=== PATIENT | male | born 1960 | race Caucasian/White ===

== ENCOUNTER 2018-03-12 21:29 | Emergency (ER) | payer MEDICAID, OTHER ==
[2018-03-12 21:45] VITALS: BMI 20.7
[2018-03-12 21:48] VITALS: O2SAT 98
[2018-03-12] MEDS ORDERED: Mineral Oil/White Petrolatum Ophth Oint OS STA (22:18)
--- NOTE | 2018-03-12 22:47 | ED PDOC ---
HPI: Headache Time Seen by Provider: 03/12/18 21:53 Chief Complaint (Nursing): Trauma Chief Complaint (Provider): irritation to left eye History Per: Patient History/Exam Limitations: other (patient is a poor historian, states that he has poor memory, when asked why he states it is from a prior condition) Onset/Duration Of Symptoms: Days (2x) Current Symptoms Are (Timing): Still Present Quality: "Pain" Associated Symptoms: denies: Blurred Vision, Extremity Weakness Additional Complaint(s): 58 year old male presents to the ED complaining of irritation on the left eye. Patient was diagnosed with Weiner's Palsy two wks ago. Patient states that he was seen and evaluated at [facility], had a normal CT of his head. States that he was Rx steroids, which he took and completed. He was advised to follow up, however did not follow-up with any doctor due to lack of insurance. 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 Denies decreased vision, headache, dizziness, weakness , or numbness. Has no other complaints. PMD: Vidal Austin Past Medical History Reviewed: Historical Data, Nursing Documentation, Vital Signs Vital Signs: Last Vital Signs Temp 98.0 F 03/12/18 21:45 Pulse 98 H 03/12/18 21:45 Resp 19 03/12/18 21:45 BP 147/61 03/12/18 21:45 Pulse Ox 98 03/12/18 21:45 - Family History Family History: States: Unknown Family Hx - Home Medications Home Medications: Ambulatory Orders Medication Instructions Recorded Mineral Oil/White Petrolatum 1 applic OS BID #1 tube 03/12/18 [Lacri-Lube] - Allergies Allergies/Adverse Reactions: Allergies Allergy/AdvReac Type Severity Reaction Status Date / Time No Known Allergies Allergy Verified 03/12/18 21:45 Review of Systems ROS Statement: Except As Marked, All Systems Reviewed And Found Negative Eyes: Positive for: Pain. Negative for: Vision Change Neurological: Negative for: Weakness, Numbness Physical Exam - Physical Exam Comments: GENERAL APPEARANCE: Patient is awake, alert, oriented to self and time, in no acute distress. SKIN: Warm, dry; (-) cyanosis; (-) rash. HEAD: (-) scalp swelling or tenderness, (-) temporal artery tenderness. EYES: (-) conjunctival pallor, (-) scleral icterus. ENMT: (-) sinus tenderness; mucous membranes are moist. NECK: (-) tenderness, (-) stiffness, (-) meningismus, (-) lymphadenopathy. CHEST AND RESPIRATORY: (-) rales, (-) rhonchi, (-) wheezes; breath sounds equal bilaterally. HEART AND CARDIOVASCULAR: (-) irregularity; (-) murmur, (-) gallop. ABDOMEN AND GI: Soft; (-) tenderness. EXTREMITIES: (-) deformity. NEURO AND PSYCH: Mental status as above. 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 Strength symmetric. Gait is unsteady. - Laboratory Results Result Diagrams: 03/12/18 23:08 03/12/18 23:08 - ECG O2 Sat by Pulse Oximetry: 98 (RA) Pulse Ox Interpretation: Normal Medical Decision Making Medical Decision Making: Time: 2217 Initial Plan: --Head w/o Contrast --Alcohol serum --CMP --Drug screen --CBC w/ Differential --Lacri-Lube --IV Insertion --Reevaluation Patient observed to be ambulating in an unsteady gait. Patient states that he normally ambulates this way due to a prior hip condition and that this is not new for him. He does not appear to be acutely intoxicated, he is speaking in full sentences, no slurred speech, no tremors, no smell of alcohol. However considering the patient's symptoms, physical exam, labs, CT head ordered. Patient is now refusing for CT head and for lab results. States that he can not stay in the ER for too long as he has children, a and a job he needs to go to. Explanation of why diagnostic tests are being offered. However the patient continues to refuse. He states that he does not want to lose his job, he needs to go home. Patient refuses further care, evaluation or treatment in the ER. Patient informed of the reasons for the following and planned treatment, which patient understands, however still refuses. Patient informed of the risk and benefits of treatment. Informed that the risk could include worsening of current conditions, undiagnosed conditions, disability or even . Patient understands the following risk and the benefits of treatment. Patient has the capacity to make decisions and still refuses treatment by RN, PA and ER MD. Patient encouraged to return to the ER at any time and to follow up with pmd. Prior to d/c, patient states that he is missing his money, security called to patient's bedside. Scribe Attestation: Documented by Enriqueta Beltran, acting as a scribe for Linn Aldana PA-C Provider Scribe Attestation: All medical record entries made by the Scribe were at my direction and personally dictated by me. I have reviewed the chart and agree that the record accurately reflects my personal performance of the history, physical exam, medical decision making, and the department course for this patient. I have also personally directed, reviewed, and agree with the discharge instructions and disposition. Disposition - Clinical Impression Clinical Impression: Weiner's palsy, Dry eye of left side - Patient ED Disposition Is Patient to be Admitted: No - Disposition Referrals: [facility] [Outside] Vidal Austin MD [Medical Doctor] - Disposition: Against Medical Advice Disposition Time: 22:40 Condition: UNKNOWN Additional Instructions: Thank you for letting us take care of you today. You are choosing to leave against medical advice. You were evaluated for Weiner's palsy, dry left eye. The emergency medical care you received today was directed at your acute symptoms. If you were prescribed any medication, please fill it and take as directed. Return to the Emergency Department if your symptoms worsen, do not improve, or if you have any other problems. Please call one of the physicians/clinics you have been referred to that are listed on the Patient Visit Information form that is included in your discharge packet. Bring any paperwork you were given at discharge with you along with any medications you are taking to your follow up visit. Our treatment cannot replace ongoing medical care by a primary care provider (PCP) outside of the emergency department. Thank you for allowing the [facility] team to be part of your care today. 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
[2018-03-12 23:16] LABS: BASO # 0.1 K/uL (0.0-0.2); EOS # 0.2 K/uL (0.0-0.7); EOS % 2.9 % (0.0-4.0); HEMOGLOBIN 12.9 g/dL (12.0-18.0); LYMPH # 2.1 K/uL (1.0-4.3); LYMPH % 31.1 % (20.0-40.0); MEAN CELL VOLUME 82.6 fl (80.0-94.0); MEAN CORPUSCULAR HEMOGLOBIN 26.6 pg (27.0-31.0); MEAN CORPUSCULAR HGB CONC 32.2 g/dL (33.0-37.0); MEAN PLATELET VOLUME 9.3 fl (7.2-11.7); MONO # 0.6 K/uL (0.0-0.8); MONO % 8.4 % (0.0-10.0); NEUT # 3.8 K/uL (1.8-7.0); NEUT % 56.6 % (50.0-75.0); NRBC % 0.1 % (0.0-0.0); RBC 4.85 Mil/uL (4.40-5.90); RED CELL DISTRIBUTION WIDTH 16.3 % (11.5-14.5); WHITE BLOOD COUNT 6.7 K/uL (4.8-10.8)
[2018-03-12 23:29] LABS: ALB/GLOB RATIO 1.1 (1.0-2.1); ALBUMIN 3.6 g/dL (3.5-5.0); ALT/SGPT 27 U/L (21-72); AST/SGOT 29 U/L (17-59); BLOOD UREA NITROGEN 26 mg/dl (9-20); CALCIUM 9.1 mg/dL (8.4-10.2); GFR AFRICAN-AMERICAN > 60; GFR NON-AFRICAN AMERICAN > 60
[2018-03-12 23:39] LABS: BARBITURATES, UR NEGATIVE (NEGATIVE); BENZODIAZEPINES, UR POSITIVE (NEGATIVE); OPIATES, UR NEGATIVE (NEGATIVE); PHENCYCLIDINE, UR NEGATIVE (NEGATIVE)
[2018-03-13 02:49] VITALS: BP 142/83; PULSE 93; RESP 15; TEMP 98.1
== END 2018-03-12 23:10 | disposition left against medical advice (07) ==
LOC: H.ER 21:29
DX: G51.0 Bell's palsy (principal); H04.122 Dry eye syndrome of left lacrimal gland
CPT/HCPCS: 80053; 85025; 99285; G0480

== ENCOUNTER 2018-03-12 23:52 | Observation (INO) | payer MEDICAID, OTHER ==
[2018-03-12 23:52] VITALS: BMI 20.7
--- NOTE | 2018-03-13 00:33 | ED PDOC ---
HPI: Altered Mental Status Time Seen by Provider: 03/12/18 23:59 Chief Complaint (Nursing): Altered Mental Status History Per: Patient History/Exam Limitations: Clinical Condition Onset/Duration Of Symptoms: Mins Onset Of Symptoms: Cannot Confirm Onset Additional Complaint(s): Hx of bipolar disorder, emphysema, CVA, Weiner's Palsy affecting L side of face x 2 weeks presenting with AMS, per police patient was found in the middle of the straight on the ground, patient denies this. States he is here to have his L eye checked because he has been unable to fully close it for the past 2 weeks and it is becoming dry. Patient denies alcohol or drug abuse. Of note, patient was in ER earlier and left AMA. Currently patient is A&O x 1 (knows name, thinks year is 1917, month is February, thinks he's at [facility] and when asked what city he's in he states [place]"). Patient denies trauma. NIHSS Stroke Scale - Date/Time Evaluation Performed Date Performed: 03/12/18 Time Performed: 23:55 - How Severe is the Stroke Level of Consciousness: 0=Alert LOC to Questions: 1=One correct LOC to commands: 0=Obeys both correctly Best Gaze: 0=Normal Visual: 0=No visual loss Facial: 3=Complete unilateral paralysis (from Weiner's) Motor Arm - Left: 1=Drift noted before 10 sec Motor Arm - Right: 0=No drift Motor Leg - Left: 0=No drift Motor Leg - Right: 0=No drift Limb Ataxia: 0=Absent Sensory: 0=Normal Best Language: 0=No aphasia Dysarthia: 1=Mild to moderate slurring Extinction & Inattention (Neglect): 0=Normal, no object Score: 6 Past Medical History Reviewed: Historical Data, Nursing Documentation, Vital Signs Vital Signs: Last Vital Signs Temp 97.3 F L 03/12/18 23:55 Pulse 84 03/12/18 23:55 Resp 18 03/12/18 23:55 BP 125/76 03/12/18 23:55 Pulse Ox 96 03/12/18 23:55 - Medical History PMH: Bipolar Disorder, Emphysema - Family History Family History: States: Unknown Family Hx - Home Medications Home Medications: Ambulatory Orders Medication Instructions Recorded Mineral Oil/White Petrolatum 1 applic OS BID #1 tube 03/12/18 [Lacri-Lube] - Allergies Allergies/Adverse Reactions: Allergies Allergy/AdvReac Type Severity Reaction Status Date / Time No Known Allergies Allergy Verified 03/12/18 21:45 Review of Systems Review Of Systems: ROS cannot be obtained secondary to pt's inabilty to answer questions. Physical Exam - Reviewed Nursing Documentation Reviewed: Yes Vital Signs Reviewed: Yes - Physical Exam Appears: Positive for: Well, Non-toxic, No Acute Distress Head Exam: Positive for: NORMOCEPHALIC. Negative for: NORMAL INSPECTION ( abrasion to R frontal scalp) Skin: Positive for: Normal Color, Warm, DRY Eye Exam: Positive for: EOMI, PERRL, Other (L sided Weiner's precludes from closing eye, dryness) ENT: Positive for: Normal ENT Inspection Neck: Positive for: Normal, Painless ROM Cardiovascular/Chest: Positive for: Regular Rate, Rhythm Respiratory: Positive for: Rhonchi Gastrointestinal/Abdominal: Positive for: Normal Exam, Bowel Sounds, Soft. Negative for: Tenderness Back: Positive for: Normal Inspection Extremity: Positive for: Normal ROM, Other (Abrasion to bilateral shoulders, abrasion to R elbow) Neurologic/Psych: Positive for: Alert, Oriented, Cerebellar Tests (difficulty with testing, slow, but completes tasks), Facial Droop (L sided). 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 II-XII (Weiner's Palsy of L side of face involving forehead on L and L eye, L facial droop), Motor/Sensory Deficits - Laboratory Results Result Diagrams: 03/13/18 01:49 - ECG O2 Sat by Pulse Oximetry: 96 Pulse Ox Interpretation: Normal Medical Decision Making Medical Decision Makin A/P: Hx of CVA, bipolar disorder, Weiner's, emphysema presenting with AMS -unclear what patient's baseline is -possibly drug or alcohol related although patient denies; patient denies taking any medications -will do AMS workup and re-eval -NIH is 6 but onset is not known, most of findings are probably from Weiner's and possible benzo usage 6AM Patient was cleared by psych but patient still a danger to himself, getting out of bed and falling Ct negative Case discussed with Dr. Ryan, will admit for AMS, MRI in AM Disposition - Clinical Impression Clinical Impression: Altered mental status - Disposition Disposition Time: 06:47 Condition: FAIR
--- NOTE | 2018-03-13 01:03 | CT ---
EXAM: CT Head Without Intravenous Contrast CLINICAL HISTORY: 58 years old, male; Signs and symptoms; Altered mental status/memory loss; Additional info: AMS, bells palsy on l TECHNIQUE: Axial computed tomography images of the head/brain without intravenous contrast. All CT scans at this facility use one or more dose reduction techniques, viz.: automated exposure control; ma/kV adjustment per patient size (including targeted exams where dose is matched to indication; i.e. head); or iterative reconstruction technique. Sagittal reformatted images were created and reviewed. COMPARISON: No relevant prior studies available. FINDINGS: Brain: Motion artifacts significantly limits evaluation, can not exclude extra-axial hemorrhage as visualized. Repeat imaging recommended. No significant white matter disease. No edema. Ventricles: No hydrocephalus. Bones: Skull is intact. Sinuses: No acute sinusitis. Mastoid air cells: No mastoid effusion. IMPRESSION: Motion artifacts significantly limits evaluation, can not exclude extra-axial hemorrhage as visualized. Repeat imaging recommended.
[2018-03-13 02:05] LABS: ALB/GLOB RATIO 1.1 (1.0-2.1); ALBUMIN 4.1 g/dL (3.5-5.0); ALT/SGPT 27 U/L (21-72); AST/SGOT 31 U/L (17-59); BLOOD UREA NITROGEN 28 mg/dl (9-20); CALCIUM 9.5 mg/dL (8.4-10.2); GFR AFRICAN-AMERICAN > 60; GFR NON-AFRICAN AMERICAN > 60
[2018-03-13 02:09] LABS: INR 0.9 (0.9-1.2); PARTIAL THROMBOPLASTIN TIME 37.1 Seconds (25.6-37.1); PROTHROMBIN TIME 10.4 Seconds (9.8-13.1)
--- NOTE | 2018-03-13 04:39 | CT ---
EXAM: CT Head Without Intravenous Contrast EXAM DATE/TIME: 03/13/2018 2:14 AM CLINICAL HISTORY: 58 years old, male; Signs and symptoms; Altered mental status/memory loss; Additional info: Repeat head CT, trauma TECHNIQUE: Axial computed tomography images of the head/brain without intravenous contrast. All CT scans at this facility use one or more dose reduction techniques, viz.: automated exposure control; ma/kV adjustment per patient size (including targeted exams where dose is matched to indication; i.e. head); or iterative reconstruction technique. Coronal and sagittal reformatted images were created and reviewed. COMPARISON: CT - HEAD W/O CONTRAST 2018-03-13 00:29 FINDINGS: Patient motion is present slightly limiting exam. Mild atrophy. No intracranial hemorrhage. No extra axial collections. No intracranial edema. Trace mucosal thickening in the ethmoid sinuses. No depressed fractures. IMPRESSION: No acute intracranial injury.
--- NOTE | 2018-03-13 06:34 | CP.PCM.HP ---
History of Present Illness - History of Present Illness History of Present Illness: CC: altered mental status HPI: This is a 58 y/o male with MHx significant for COPD, 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 He was found by police on the ground in the middle of the street. Patient was here earlier to have his L eye checked, but had left AMA. Patient is A/Ox1, and is otherwise a poor historian. Believes it is 1916 and states his only problem is his L eye. ROS: patient with AMS, unable to provide MHx: COPD, CVA in past, Weiner's palsy affecting L side of face (x2 weeks), and bipolar disorder SHx: None Allergies: NKDA Medications: Per med rec Family Hx: unable to provide Social Hx: States lives with family; unclear about whether he uses EtOH or tobacco Present on Admission - Present on Admission Any Indicators Present on Admission: No Past Patient History - Past Social History Smoking Status: Unknown If Ever Smoked - PULMONARY Hx Emphysema: Yes - NEUROLOGICAL Hx Neurological Disorder: Yes (weiner's palsy) - PSYCHIATRIC Hx Bipolar Disorder: Yes - ANESTHESIA Hx Anesthesia: No Meds Allergies/Adverse Reactions: Allergies Allergy/AdvReac Type Severity Reaction Status Date / Time No Known Allergies Allergy Verified 03/12/18 21:45 Physical Exam - Constitutional Appears: No Acute Distress - Head Exam Head Exam: ATRAUMATIC, NORMOCEPHALIC - Eye Exam Additional comments: L eye with swelling, ? drainage - ENT Exam ENT Exam: Mucous Membranes Moist - Neck Exam Neck exam: Positive for: Full Rom - Respiratory Exam Respiratory Exam: Clear to Auscultation Bilateral, NORMAL BREATHING PATTERN - Cardiovascular Exam Cardiovascular Exam: REGULAR RHYTHM, +S1, +S2 - GI/Abdominal Exam GI & Abdominal Exam: Normal Bowel Sounds, Soft - Extremities Exam Extremities exam: Positive for: full ROM, normal inspection - Neurological Exam Neurological exam: Alert Additional comments: A/O x 1; does not comply fully with rest of neuro exam at this time - Psychiatric Exam Additional comments: difficult to assess; constricted affect - Skin Skin Exam: Dry, Warm Results - Vital Signs Recent Vital Signs: Last Vital Signs Temp 97.3 F L 03/12/18 23:55 Pulse 84 03/12/18 23:55 Resp 18 03/12/18 23:55 BP 125/76 03/12/18 23:55 Pulse Ox 96 03/13/18 00:37 - Labs Result Diagrams: 03/13/18 01:49 Labs: Laboratory Results - last 24 hr 03/13/18 03/13/18 03/13/18 00:09 01:49 01:49 PT 10.4 INR 0.9 APTT 37.1 Sodium 147 Potassium 4.1 Chloride 106 Carbon Dioxide 28 Anion Gap 17 BUN 28 H Creatinine 0.8 Est GFR ( Amer) > 60 Est GFR (Non-Af Amer) > 60 POC Glucose (mg/dL) 104 Random Glucose 103 Calcium 9.5 Total Bilirubin 0.4 AST 31 ALT 27 Alkaline Phosphatase 85 Total Protein 7.8 Albumin 4.1 Globulin 3.7 Albumin/Globulin Ratio 1.1 Alcohol, Quantitative < 10 - EKG Data EKG Interpreted by: Myself EKG shows normal: Sinus rhythm Rate: Normal - EKG Data EKG comments: unremarkable - Imaging and Cardiology CT scan - head Status: Image reviewed by me, Report reviewed by me (WNL, no acute findigns) Chest x-ray Status: Image reviewed by me (no acute findings) Assessment & Plan (1) Altered mental status Assessment and Plan: 58 y/o male with Weiner's palsy, COPD, prior CVA, and Bipolar disorder who comes in with falls and AMS; also with eye infection -Admit to Tele -Serial trops -Neuro consult, possible MRI -Neuro checks -ASA 81 -SQ Lovenox Status: Acute (2) Weiner's palsy Status: Acute (3) DVT prophylaxis Status: Acute
[2018-03-13] MEDS ORDERED: Enoxaparin 40 mg Syringe SC SCH (09:00)
--- NOTE | 2018-03-13 09:12 | RAD ---
PROCEDURE: CHEST RADIOGRAPH, 1 VIEW HISTORY: ams COMPARISON: None available. FINDINGS: LUNGS: [id number] pulmonary vascular congestion is noted. PLEURA: No pneumothorax or pleural fluid seen. CARDIOVASCULAR: Normal. OSSEOUS STRUCTURES: No significant abnormalities. VISUALIZED UPPER ABDOMEN: Normal. OTHER FINDINGS: None. IMPRESSION: [id number] pulmonary vascular congestion.
[2018-03-13] MEDS: Sodium Chloride 0.9% 1,000 ML IV SCH ×2 (09:15→17:12)
[2018-03-13 09:23] LABS: BASO # 0.1 K/uL (0.0-0.2); BASO % 0.6 % (0.0-2.0); EOS # 0.1 K/uL (0.0-0.7); EOS % 1.1 % (0.0-4.0); HEMOGLOBIN 13.4 g/dL (12.0-18.0); LYMPH # 1.5 K/uL (1.0-4.3); LYMPH % 14.8 % (20.0-40.0); MEAN CELL VOLUME 83.7 fl (80.0-94.0); MEAN CORPUSCULAR HEMOGLOBIN 27.1 pg (27.0-31.0); MEAN CORPUSCULAR HGB CONC 32.4 g/dL (33.0-37.0); MEAN PLATELET VOLUME 8.7 fl (7.2-11.7); MONO # 0.8 K/uL (0.0-0.8); MONO % 7.6 % (0.0-10.0); NEUT # 7.6 K/uL (1.8-7.0); NEUT % 75.9 % (50.0-75.0); RBC 4.95 Mil/uL (4.40-5.90); RED CELL DISTRIBUTION WIDTH 16.1 % (11.5-14.5)
[2018-03-13] MEDS: Ciprofloxacin 0.3% OPTH SOLN OD SCH ×2 (09:43→17:12)
--- NOTE | 2018-03-13 15:25 | CP.PCM.CON ---
History of Present Illness - History of Present Illness History of Present Illness: 58 yr old male with pmh of rodriguez's palsy causing left sided facial weakness for 2 weeks, Emphysema and bipolar disorder who was found in the middle of the road, wandering and speaking incoherently. He presented for similar symptoms yesterday and left ama and would like to again now. He is not able to tell me the history of his spell and is having quite a hard time following commands. cannot tell me if he has taken his bipolar meds either. PMH/PSH: as above FH/SH: ?homeless. denies alcohol. All: nkda. on exam: AAOx3. PERRL. Cn 2-12 normal except for left Cranial nerve weakness. Lt. facial droop He cannot wrinkle forehead on left side. Speech fluent can name and repeat. Motor/sensory exam is normal. Gait is normal. Past Patient History - Past Social History Smoking Status: Unknown If Ever Smoked - CARDIAC Hx Cardiac Disorders: No Hx Hypertension: No - PULMONARY Hx Tuberculosis: No - NEUROLOGICAL HX Cerebrovascular Accident: No Hx Seizures: No - HEMATOLOGICAL/ONCOLOGICAL Hx Cancer: No Hx Human Immunodeficiency Virus (HIV): No - GENITOURINARY/GYNECOLOGICAL Hx Sexually Transmitted Disorders: No - PSYCHIATRIC Hx Bipolar Disorder: Yes - ANESTHESIA Hx Anesthesia: No Meds Allergies/Adverse Reactions: Allergies Allergy/AdvReac Type Severity Reaction Status Date / Time No Known Allergies Allergy Verified 03/12/18 21:45 - Medications Medications: Current Medications Aspirin (Ecotrin) 81 mg PO DAILY [facility] Last Admin: 03/13/18 09:58 Dose: 81 mg Atorvastatin Calcium (Lipitor) 40 mg PO DAILY [facility] Last Admin: 03/13/18 09:50 Dose: 40 mg Ciprofloxacin (Ciloxan 0.3% Ophth Soln) 1 drop OD Q4 [facility] Last Admin: 03/13/18 09:43 Dose: 1 drop Enoxaparin Sodium (Lovenox) 40 mg SC DAILY [facility] PRN Reason: Protocol Last Admin: 03/13/18 09:45 Dose: 40 mg Sodium Chloride (Sodium Chloride 0.9%) 1,000 mls @ 150 mls/hr IV .[id number] [facility] Stop: 03/13/18 20:49 Last Admin: 03/13/18 09:15 Dose: 150 mls/hr Results - Vital Signs Recent Vital Signs: Last Vital Signs Temp 96 F L 03/13/18 11:56 Pulse 80 03/13/18 10:51 Resp 20 03/13/18 10:37 BP 106/66 03/13/18 10:51 Pulse Ox 98 03/13/18 10:51 - Labs Result Diagrams: 03/13/18 00:27 03/13/18 01:49 Labs: Laboratory Results - last 24 hr 03/13/18 03/13/18 03/13/18 00:09 00:27 01:49 WBC 10.0 RBC 4.95 Hgb 13.4 Hct 41.4 MCV 83.7 MCH 27.1 MCHC 32.4 L RDW 16.1 H Plt Count 160 MPV 8.7 Neut % (Auto) 75.9 H Lymph % (Auto) 14.8 L [place] % (Auto) 7.6 Eos % (Auto) 1.1 Baso % (Auto) 0.6 Neut # (Auto) 7.6 H Lymph # (Auto) 1.5 [place] # (Auto) 0.8 Eos # (Auto) 0.1 Baso # (Auto) 0.1 PT INR APTT Sodium 147 Potassium 4.1 Chloride 106 Carbon Dioxide 28 Anion Gap 17 BUN 28 H Creatinine 0.8 Est GFR ( Amer) > 60 Est GFR (Non-Af Amer) > 60 POC Glucose (mg/dL) 104 Random Glucose 103 Calcium 9.5 Total Bilirubin 0.4 AST 31 ALT 27 Alkaline Phosphatase 85 Troponin I Total Protein 7.8 Albumin 4.1 Globulin 3.7 Albumin/Globulin Ratio 1.1 Alcohol, Quantitative < 10 03/13/18 03/13/18 01:49 09:02 WBC RBC Hgb Hct MCV MCH MCHC RDW Plt Count MPV Neut % (Auto) Lymph % (Auto) [place] % (Auto) Eos % (Auto) Baso % (Auto) Neut # (Auto) Lymph # (Auto) [place] # (Auto) Eos # (Auto) Baso # (Auto) PT 10.4 INR 0.9 APTT 37.1 Sodium Potassium Chloride Carbon Dioxide Anion Gap BUN Creatinine Est GFR ( Amer) Est GFR (Non-Af Amer) POC Glucose (mg/dL) Random Glucose Calcium Total Bilirubin AST ALT Alkaline Phosphatase Troponin I < 0.0120 Total Protein Albumin Globulin Albumin/Globulin Ratio Alcohol, Quantitative - Imaging and Cardiology CT scan - head Status: Image reviewed by me, Report reviewed by me (ct head normal. ) Assessment & Plan - Assessment and Plan (Free Text) Assessment: 58 yr old male with what appears to be psychotic break but may also be secondary to seizure. plan: 1. EEG 2. Psychiatry consult 3. Treatment for [place] Palsy--acyclovir 800 mg tid, eye patch and prednisone 60 mg daily ( if psych clears) Thank you DR. smith
[2018-03-13 16:30] LABS: HDL CHOLESTEROL 35 MG/DL (30-70)
[2018-03-13 16:41] LABS: LDL CHOLESTEROL 135 mg/dL (0-129)
[2018-03-13] MEDS: Ciprofloxacin 0.3% OPTH SOLN OS SCH (21:31)
[2018-03-14 00:12] VITALS: RESP 18
[2018-03-14] MEDS: Ciprofloxacin 0.3% OPTH SOLN OS SCH ×2 (01:15→06:09)
[2018-03-14 03:47] LABS: BARBITURATES, UR NEGATIVE (NEGATIVE); BENZODIAZEPINES, UR POSITIVE (NEGATIVE); OPIATES, UR NEGATIVE (NEGATIVE); PHENCYCLIDINE, UR NEGATIVE (NEGATIVE)
--- NOTE | 2018-03-14 07:44 | CP.PCM.PN ---
Subjective - Date & Time of Evaluation Date of Evaluation: 03/14/18 Time of Evaluation: 07:44 Objective - Vital Signs/Intake and Output Vital Signs (last 24 hours): Temp Pulse Resp BP Pulse Ox 97.3 F L 98 H 18 105/72 95 03/14/18 05:00 03/14/18 05:00 03/14/18 05:00 03/14/18 05:00 03/14/18 05:00 Vitals Reviewed GEN: cont to be confused, not oriented to place or time HEENT: NCAT, PERRL, EOMI HEART: RRR, +S1S2, NO MRG LUNG: CTAB, NO WRR ABD: soft, NT, ND, No HSM, No masses EXT: normal pedal pulses, normal capillary refill NEURO: awake, alert, no focal deficits SKIN: warm, dry PSYCH: normal mood, normal affect - Medications Medications: Current Medications Aspirin (Ecotrin) 81 mg PO DAILY [facility] Last Admin: 03/13/18 09:58 Dose: 81 mg Atorvastatin Calcium (Lipitor) 40 mg PO DAILY [facility] Last Admin: 03/13/18 09:50 Dose: 40 mg Ciprofloxacin (Ciloxan 0.3% Ophth Soln) 1 drop OS Q4 [facility] Last Admin: 03/14/18 06:09 Dose: 1 drop Enoxaparin Sodium (Lovenox) 40 mg SC DAILY [facility] PRN Reason: Protocol Last Admin: 03/13/18 09:45 Dose: 40 mg - Labs Labs: 03/13/18 00:27 03/13/18 01:49 PT 10.4 Seconds (9.8-13.1) 03/13/18 01:49 INR 0.9 (0.9-1.2) 03/13/18 01:49 APTT 37.1 Seconds (25.6-37.1) 03/13/18 01:49 Assessment and Plan - Assessment and Plan (Free Text) Plan: 58 y/o male with MHx significant for COPD, 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 He was found by police on the ground in the middle of the street. Patient was here earlier to have his L eye checked, but had left AMA. Patient is A/Ox1, and is otherwise a poor historian. Believes it is 1916 and states his only problem is his L eye. Spoke with sister Bita. Patient is usually AAOX3. (1) Altered mental status Assessment and Plan: 58 y/o male with Weiner's palsy, COPD, prior CVA, and Bipolar disorder who comes in with falls and AMS; also with eye infection -Admit to Tele -Serial trops -Neuro consult, possible MRI -Neuro checks -ASA 81 -SQ Lovenox Status: Acute (2) Weiner's palsy Status: Acute (3) DVT prophylaxi
[2018-03-14 08:00] VITALS: BP 99/68; PULSE 108; TEMP 98.9; O2SAT 93
--- NOTE | 2018-03-14 10:28 | CP.PCM.DIS ---
Provider - Provider Date of Admission: 03/13/18 06:28 Attending physician: Roshni Ryan MD Time Spent in preparation of Discharge (in minutes): 30 Diagnosis - Discharge Diagnosis (1) Altered mental status Status: Acute Hospital Course - Lab Results Lab Results: Most Recent Lab Values WBC 10.0 K/uL (4.8-10.8) 03/13/18 00:27 RBC 4.95 Mil/uL (4.40-5.90) 03/13/18 00:27 Hgb 13.4 g/dL (12.0-18.0) 03/13/18 00:27 Hct 41.4 % (35.0-51.0) 03/13/18 00:27 MCV 83.7 fl (80.0-94.0) 03/13/18 00:27 MCH 27.1 pg (27.0-31.0) 03/13/18 00:27 MCHC 32.4 g/dL (33.0-37.0) L 03/13/18 00:27 RDW 16.1 % (11.5-14.5) H 03/13/18 00:27 Plt Count 160 K/uL (130-400) 03/13/18 00:27 MPV 8.7 fl (7.2-11.7) 03/13/18 00:27 Neut % (Auto) 75.9 % (50.0-75.0) H 03/13/18 00:27 Lymph % (Auto) 14.8 % (20.0-40.0) L 03/13/18 00:27 Norman % (Auto) 7.6 % (0.0-10.0) 03/13/18 00:27 Eos % (Auto) 1.1 % (0.0-4.0) 03/13/18 00:27 Baso % (Auto) 0.6 % (0.0-2.0) 03/13/18 00:27 Neut # (Auto) 7.6 K/uL (1.8-7.0) H 03/13/18 00:27 Lymph # (Auto) 1.5 K/uL (1.0-4.3) 03/13/18 00:27 Norman # (Auto) 0.8 K/uL (0.0-0.8) 03/13/18 00:27 Eos # (Auto) 0.1 K/uL (0.0-0.7) 03/13/18 00:27 Baso # (Auto) 0.1 K/uL (0.0-0.2) 03/13/18 00:27 PT 10.4 Seconds (9.8-13.1) 03/13/18 01:49 INR 0.9 (0.9-1.2) 03/13/18 01:49 APTT 37.1 Seconds (25.6-37.1) 03/13/18 01:49 Sodium 147 mmol/l (132-148) 03/13/18 01:49 Potassium 4.1 MMOL/L (3.6-5.0) 03/13/18 01:49 Chloride 106 mmol/L (98-107) 03/13/18 01:49 Carbon Dioxide 28 mmol/L (22-30) 03/13/18 01:49 Anion Gap 17 (10-20) 03/13/18 01:49 BUN 28 mg/dl (9-20) H 03/13/18 01:49 Creatinine 0.8 mg/dl (0.8-1.5) 03/13/18 01:49 Est GFR ( Amer) > 60 03/13/18 01:49 Est GFR (Non-Af Amer) > 60 03/13/18 01:49 POC Glucose (mg/dL) 104 mg/dL (65-110) 03/13/18 00:09 Random Glucose 103 mg/dL (75-110) 03/13/18 01:49 Calcium 9.5 mg/dL (8.4-10.2) 03/13/18 01:49 Total Bilirubin 0.4 mg/dl (0.2-1.3) 03/13/18 01:49 AST 31 U/L (17-59) 03/13/18 01:49 ALT 27 U/L (21-72) 03/13/18 01:49 Alkaline Phosphatase 85 U/L (38-126) 03/13/18 01:49 Troponin I < 0.0120 ng/mL (0.00-0.120) 03/13/18 17:01 Total Protein 7.8 G/DL (6.3-8.2) 03/13/18 01:49 Albumin 4.1 g/dL (3.5-5.0) 03/13/18 01:49 Globulin 3.7 gm/dL (2.2-3.9) 03/13/18 01:49 Albumin/Globulin Ratio 1.1 (1.0-2.1) 03/13/18 01:49 Triglycerides 98 mg/DL (0-149) 03/13/18 16:12 Cholesterol 202 mg/dL (0-199) H 03/13/18 16:12 LDL Cholesterol Direct 135 mg/dL (0-129) H 03/13/18 16:12 HDL Cholesterol 35 MG/DL (30-70) 03/13/18 16:12 Urine Opiates Screen Negative (NEGATIVE) 03/14/18 02:30 Urine Methadone Screen Negative (NEGATIVE) 03/14/18 02:30 Ur Barbiturates Screen Negative (NEGATIVE) 03/14/18 02:30 Ur Phencyclidine Scrn Negative (NEGATIVE) 03/14/18 02:30 Ur Amphetamines Screen Negative (NEGATIVE) 03/14/18 02:30 U Benzodiazepines Scrn Positive (NEGATIVE) 03/14/18 02:30 U Oth Cocaine Metabols Negative (NEGATIVE) 03/14/18 02:30 U Cannabinoids Screen Negative (NEGATIVE) 03/14/18 02:30 Alcohol, Quantitative < 10 mg/dl (0-10) 03/13/18 01:49 - Hospital Course Hospital Course: 58 y/o male with MHx significant for COPD, 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 He was found by police on the ground in the middle of the street. Patient was here earlier to have his L eye checked, but had left AMA. Patient is A/Ox1, and is otherwise a poor historian. Believes it is 1916 and states his only problem is his L eye. UDS + benzodiazepines. Yesterday upon evaluation patient was oriented to person only. Neurology was consulted as well as psych for further eval for possible CVA/seizures/ psychosis. This morning patient was awake, alert, oriented, to person, place, and time. Patient no longer wished to stay in hospital and refused all further testing e.g.) MRI, EEG. Patient signed AMA. All benefits of staying in hospital and all risks of leaving AMA explained - including but not limited to potential worsening of condition, risk of CVA, risk of possible partial or full permanent or transient debilitation, possible . Discharge Exam - Head Exam Additional comments: patient refused exam Discharge Plan - Follow Up Plan Condition: FAIR Disposition: AGAINST MEDICAL ADVICE
--- NOTE | 2018-03-14 14:26 | CARD ---
APPROVED REPORT EKG Measurement Heart [id number] <Conclusion> Normal sinus rhythm Normal ECG
== END 2018-03-14 09:13 | disposition left against medical advice (07) ==
LOC: H.ER 23:52 → H.ERHOLD 03-13 06:28 → H.TEL 03-13 14:50
PROVIDERS: ADMIT Internal Medicine; ATTEND Internal Medicine
DX: R41.82 Altered mental status, unspecified (principal); F31.9 Bipolar disorder, unspecified; J43.9 Emphysema, unspecified; Z86.73 Personal history of transient ischemic attack (TIA), and cerebral infarction without residual deficits; G51.0 Bell's palsy; H44.009 Unspecified purulent endophthalmitis, unspecified eye; I95.9 Hypotension, unspecified; T68.XXXA Hypothermia, initial encounter
CPT/HCPCS: 70450; 71045; 80053; 80061; 82948; 84145; 84484; 85025; 85610; 85730; 87040; 87086; 93005; 96372; 99285; G0378; G0480; J1630; J1650; J7030